=== PATIENT | female | born 1960 | race Caucasian/White ===

== ENCOUNTER 2022-07-20 06:22 | Day surgery (SDC) | payer MEDICAID ==
[~2022-07-20] VITALS: Ht 149.9 cm; Wt 55.8 kg
[2022-07-20] MEDS ORDERED: fentaNYL citrate 0.05 MG/ML VIAL ONE (07:43)
[2022-07-20] MEDS ORDERED: MIDAZOLAM 2 MG/2 ML VIAL ONE (07:44)
[2022-07-20] MEDS ORDERED: LIDOCAINE 2% 100 MG/5 ML UJET TP ONE (07:44)
[2022-07-20] MEDS ORDERED: fentaNYL citrate 0.05 MG/ML VIAL IVP ONE (09:00)
== END 2022-07-20 08:53 | disposition home or self-care (01) ==
LOC: MOR 06:22 → MMU 06:23 → MOR 08:53
PROVIDERS: ATTEND Internal Medicine Gastroenterology
DX: Z12.11 Encounter for screening for malignant neoplasm of colon (principal); I10 Essential (primary) hypertension; E78.5 Hyperlipidemia, unspecified; K21.9 Gastro-esophageal reflux disease without esophagitis; Z20.822 Contact with and (suspected) exposure to COVID-19
CPT/HCPCS: 45378; 87426; J3010; J2250

== ENCOUNTER 2023-12-13 11:53 | Day surgery (SDC) | payer OTHER ==
[~2023-12-13] VITALS: Ht 149.9 cm; Wt 54.0 kg
[2023-12-13] MEDS ORDERED: fentaNYL citrate 0.05 MG/ML VIAL ONE (13:18)
[2023-12-13] MEDS ORDERED: MIDAZOLAM 2 MG/2 ML VIAL ONE (13:18)
[2023-12-13] MEDS: MIDAZOLAM 2 MG/2 ML VIAL IVP ONE (13:28)
== END 2023-12-13 14:53 | disposition home or self-care (01) ==
LOC: MOR 11:53 → MMU 11:53 → MOR 14:53
PROVIDERS: ATTEND Internal Medicine Gastroenterology
DX: K21.9 Gastro-esophageal reflux disease without esophagitis (principal); K44.9 Diaphragmatic hernia without obstruction or gangrene; K22.70 Barrett's esophagus without dysplasia; K31.7 Polyp of stomach and duodenum; I10 Essential (primary) hypertension; Z79.899 Other long term (current) drug therapy; Z98.891 History of uterine scar from previous surgery; Z98.890 Other specified postprocedural states
CPT/HCPCS: 43235; J2250; J3010